=== PATIENT | female | born 1960 | race Caucasian/White ===

== ENCOUNTER 2025-03-09 08:26 | Inpatient (IN) | payer OTHER ==
[~2025-03-09] VITALS: Ht 160 cm; Wt 75.7 kg
[2025-03-09] MEDS ORDERED: LEVO100 PO (08:36)
[2025-03-09] MEDS ORDERED: METF-1211 PO (08:36)
[2025-03-09 10:15] LABS: PLATELET COUNT (AUTO) 278 K/uL (150-450); RED BLOOD CELL COUNT(AUTO) 4.41 MIL/uL (4.00-5.20); RED CELL DISTRIBUTION WIDTH 13.6 % (11.5-14.5); WHITE BLOOD COUNT (AUTO) 7.1 K/uL (4.5-11.0)
[2025-03-09 10:24] LABS: CALCIUM, TOTAL 9.4 mg/dL (8.8-10.5); CREATININE 0.43 mg/dL (0.60-1.30); GLOMERULAR FILTR. RATE CALC > 60 mL/min (>60); GLUCOSE,RANDOM 124 mg/dL (70-110); SODIUM SERUM 134 mmol/L (136-145); UREA NITROGEN, BLOOD 11 mg/dL (7-18)
[2025-03-09 10:32] LABS: LACTIC ACID 1.2 mmol/L (0.4-2.0)
[2025-03-09] MEDS: VANCOMYCIN 1.25 GM/WATER(PEG) 250 ML IV ONE (10:51)
[2025-03-09 15:15] VITALS: BP 148/82; PULSE 66; RESP 18; TEMP 98.2; O2SAT 98
[2025-03-09] MEDS ORDERED: ZOLPIDEM TARTRATE 5 MG TABLET PO PRN (15:45)
[2025-03-09] MEDS ORDERED: MORPHINE SULFATE 2 MG/ML SYRINGE IVP PRN (15:45)
[2025-03-09] MEDS ORDERED: IPRATROPIUM BROMIDE 0.5 MG/2.5 ML NEB SOLUTION NEB PRN (15:45)
[2025-03-09] MEDS ORDERED: ACETAMINOPHEN 325 MG TABLET PO PRN (15:45)
[2025-03-09] MEDS ORDERED: BISACODYL 10 MG RECTAL RECTAL SUPPOSITORY PR PRN (15:45)
[2025-03-09] MEDS ORDERED: MAGNESIUM HYDROXIDE SUSPENSION 30 ML UDCUP PO PRN (15:45)
[2025-03-09] MEDS ORDERED: ALBUTEROL SULFATE 2.5 MG/0.5 ML NEB SOLUTION NEB PRN (15:45)
[2025-03-09] MEDS ORDERED: HYDROCODONE/ACETAMINOPHEN 5-325 MG TABLET PO PRN (15:45)
[2025-03-09] MEDS ORDERED: ONDANSETRON HCL 4 MG/2 ML VIAL IVP PRN (15:45)
[2025-03-09] MEDS: HEPARIN SODIUM,PORCINE 5,000 UNITS/ML VIAL SQ SCH (16:12)
[2025-03-09 20:36] VITALS: BP 144/85; PULSE 67; RESP 16; TEMP 98.1; O2SAT 96
[2025-03-09] MEDS: VANCOMYCIN 1GM/WATER(PEG/NADA) 200 ML IV SCH (21:37)
[2025-03-09] MEDS: DOCUSATE SODIUM 100 MG CAPSULE PO SCH (22:06)
[2025-03-10] VITALS (9 sets, daily range): BP systolic 95–123; BP diastolic 61–86; PULSE 54–70; RESP 16–18; TEMP 97.2–99; O2SAT 95–98
[2025-03-10] MEDS ORDERED: MORPHINE SULFATE 4 MG/ML VIAL IVP PRN (03:37)
[2025-03-10] MEDS: LEVOTHYROXINE SODIUM 100 MCG TABLET PO SCH (06:09)
[2025-03-10 06:49] LABS: PLATELET COUNT (AUTO) 290 K/uL (150-450); RED BLOOD CELL COUNT(AUTO) 4.16 MIL/uL (4.00-5.20); RED CELL DISTRIBUTION WIDTH 13.5 % (11.5-14.5); WHITE BLOOD COUNT (AUTO) 6.3 K/uL (4.5-11.0)
[2025-03-10 06:55] LABS: CALCIUM, TOTAL 8.9 mg/dL (8.8-10.5); CREATININE 0.63 mg/dL (0.60-1.30); GLOMERULAR FILTR. RATE CALC > 60 mL/min (>60); GLUCOSE,RANDOM 141 mg/dL (70-110); SODIUM SERUM 131 mmol/L (136-145); UREA NITROGEN, BLOOD 17 mg/dL (7-18)
[2025-03-10] MEDS: PANTOPRAZOLE SODIUM 40 MG DR TABLET PO SCH (08:19)
[2025-03-10] MEDS ORDERED: SODIUM CHLORIDE 0.9% 500 ML IV ONE (08:23)
[2025-03-10] MEDS ORDERED: DEXTROSE 50%-WATER 25 GM/50 ML SYRINGE IVP PRN (16:45)
[2025-03-10 17:15] LABS: GLUCOMETER DEV NAME(LOC) 5N.1D; GLUCOSE,POINT OF CARE 188 MG/DL (70-110)
[2025-03-10] MEDS: INSULIN LISPRO 100 UNITS/ML SQ PRN (17:23)
[2025-03-11 04:43] VITALS: BP 113/71; PULSE 58; RESP 18; TEMP 97.9; O2SAT 95
[2025-03-11 06:10] LABS: PLATELET COUNT (AUTO) 271 K/uL (150-450); RED BLOOD CELL COUNT(AUTO) 4.06 MIL/uL (4.00-5.20); RED CELL DISTRIBUTION WIDTH 13.7 % (11.5-14.5); WHITE BLOOD COUNT (AUTO) 7.2 K/uL (4.5-11.0)
[2025-03-11 06:23] LABS: CALCIUM, TOTAL 9.0 mg/dL (8.8-10.5); CREATININE 0.50 mg/dL (0.60-1.30); GLOMERULAR FILTR. RATE CALC > 60 mL/min (>60); GLUCOSE,RANDOM 120 mg/dL (70-110); SODIUM SERUM 134 mmol/L (136-145); UREA NITROGEN, BLOOD 16 mg/dL (7-18)
[2025-03-11 06:46] LABS: GLUCOMETER DEV NAME(LOC) 5N.1D; GLUCOSE,POINT OF CARE 171 MG/DL (70-110)
[2025-03-11 06:46] LABS: GLUCOMETER DEV NAME(LOC) 5N.1D; GLUCOSE,POINT OF CARE 122 MG/DL (70-110)
[2025-03-11 08:25] VITALS: BP 140/82; PULSE 60; RESP 18; TEMP 98.1; O2SAT 99
[2025-03-11 11:16] VITALS: BP 117/78; PULSE 67; RESP 18; TEMP 98.2; O2SAT 94
[2025-03-11 12:26] LABS: GLUCOMETER DEV NAME(LOC) 5N.1D; GLUCOSE,POINT OF CARE 172 MG/DL (70-110)
[2025-03-11 15:23] VITALS: BP 120/72; PULSE 62; RESP 18; TEMP 98.1; O2SAT 95
[2025-03-11 19:06] LABS: GLUCOMETER DEV NAME(LOC) 4E.2; GLUCOSE,POINT OF CARE 140 MG/DL (70-110)
[2025-03-11 19:56] VITALS: BP 127/78; PULSE 64; RESP 18; TEMP 98.2; O2SAT 94
[2025-03-11 22:16] LABS: GLUCOMETER DEV NAME(LOC) 6N.2C; GLUCOSE,POINT OF CARE 130 MG/DL (70-110)
[2025-03-12 04:56] VITALS: BP 133/90; PULSE 58; RESP 18; TEMP 97.5; O2SAT 94
[2025-03-12 06:18] LABS: PLATELET COUNT (AUTO) 278 K/uL (150-450); RED BLOOD CELL COUNT(AUTO) 4.08 MIL/uL (4.00-5.20); RED CELL DISTRIBUTION WIDTH 14.1 % (11.5-14.5); WHITE BLOOD COUNT (AUTO) 6.1 K/uL (4.5-11.0)
[2025-03-12 06:29] LABS: CALCIUM, TOTAL 8.9 mg/dL (8.8-10.5); CREATININE 0.52 mg/dL (0.60-1.30); GLOMERULAR FILTR. RATE CALC > 60 mL/min (>60); GLUCOSE,RANDOM 121 mg/dL (70-110); SODIUM SERUM 136 mmol/L (136-145); UREA NITROGEN, BLOOD 17 mg/dL (7-18)
[2025-03-12 06:36] LABS: GLUCOMETER DEV NAME(LOC) 6N.2C; GLUCOSE,POINT OF CARE 139 MG/DL (70-110)
[2025-03-12 08:38] VITALS: BP 131/89; PULSE 56; RESP 18; TEMP 98.4; O2SAT 98
[2025-03-12 12:16] LABS: GLUCOMETER DEV NAME(LOC) 6N.2C; GLUCOSE,POINT OF CARE 138 MG/DL (70-110)
[2025-03-12] MEDS ORDERED: PRED-554 PO (12:56)
[2025-03-12] MEDS ORDERED: HYDR200T38 PO (12:56)
[2025-03-12] MEDS ORDERED: AMOX-457 PO (12:56)
== END 2025-03-12 15:35 | disposition home or self-care (01) | DRG 383 ==
LOC: EMS 08:26 → EDH 13:00 → 6S 15:10 → 5N 18:20 → 6S 03-11 15:10 → 4E 03-11 19:19
PROVIDERS: ADMIT Internal Medicine; ATTEND Internal Medicine
DX: L03.114 Cellulitis of left upper limb (principal); E87.1 Hypo-osmolality and hyponatremia; E03.9 Hypothyroidism, unspecified; E11.9 Type 2 diabetes mellitus without complications; M06.8A Other specified rheumatoid arthritis, other specified site; E66.3 Overweight; Z68.29 Body mass index [BMI] 29.0-29.9, adult; Z79.84 Long term (current) use of oral hypoglycemic drugs
CPT/HCPCS: 80048; 80202; 82962; 83605; 84550; 85025; 86431; 87040; 96365; 99285; G0378; J1644; J7040